=== PATIENT | female | born 1995 | race African-American/Black ===

== ENCOUNTER 2019-09-25 09:56 | Emergency (ER) | payer OTHER ==
[~2019-09-25] VITALS: Ht 182.9 cm; Wt 129.4 kg
[2019-09-25] MEDS ORDERED: ABILIFY5 MG PO (10:16)
[2019-09-25] MEDS ORDERED: TRAZODONE HCL50 MG PO (10:16)
--- NOTE | 2019-09-25 11:01 | Diagnostic Imaging Report ---
EXAM: CXR 1 [facility] DATE: 09/25/2019 12:00 AM INDICATION: Chest pain COMPARISON: None FINDINGS: The trachea is midline. The lungs are symmetrically expanded without evidence for large focal consolidation, pneumothorax, or significant pleural effusion. The cardiomediastinal silhouette and pulmonary vasculature are within normal limits. No acute osseous abnormality is identified. The surrounding soft tissues are unremarkable. IMPRESSION: No acute cardiopulmonary process identified. Signed by: Dr. Giorgi Mendez MD on 09/25/2019 10:56 AM
[2019-09-25] MEDS ORDERED: CYCLOBENZAPRINE5 MG PO (11:33)
[2019-09-25 11:41] VITALS: BP 126/91
== END 2019-09-25 11:40 | disposition home or self-care (01) ==
LOC: FSED 09:56
DX: R06.09 Other forms of dyspnea (principal); R07.89 Other chest pain
CPT/HCPCS: 71045; 80053; 83880; 84484; 85025; 85379; 93005; 99284